=== PATIENT | female | born 1945 | race Caucasian/White ===

== ENCOUNTER 2017-01-09 08:52 | Outpatient (CLI) | payer OTHER | END 2017-01-09 20:24 | disposition home or self-care (01) | LOC: SMA 08:52 | PROVIDERS: ATTEND Internal Medicine | DX: Z12.31 Encounter for screening mammogram for malignant neoplasm of breast (principal) | CPT/HCPCS: G0202 ==

== ENCOUNTER 2018-10-02 09:13 | Outpatient (CLI) | payer OTHER | END 2018-10-02 21:28 | disposition home or self-care (01) | LOC: SMA 09:13 | PROVIDERS: ATTEND Obstetrics & Gynecology | DX: Z12.31 Encounter for screening mammogram for malignant neoplasm of breast (principal) | CPT/HCPCS: 77067 ==

== ENCOUNTER 2020-06-09 09:21 | Outpatient (CLI) | payer OTHER | END 2020-06-10 07:17 | disposition home or self-care (01) | LOC: SMA 09:21 | PROVIDERS: ATTEND Obstetrics & Gynecology | DX: Z12.31 Encounter for screening mammogram for malignant neoplasm of breast (principal) | CPT/HCPCS: 77067 ==

== ENCOUNTER 2021-07-05 09:50 | Outpatient (CLI) | payer OTHER | END 2021-07-05 21:26 | disposition home or self-care (01) | LOC: SMA 09:50 | PROVIDERS: ATTEND Nurse Practitioner Obstetrics & Gynecology | DX: Z12.31 Encounter for screening mammogram for malignant neoplasm of breast (principal); N64.89 Other specified disorders of breast | CPT/HCPCS: 77067 ==

== ENCOUNTER 2022-12-15 10:19 | Outpatient (CLI) | payer OTHER, BC | END 2022-12-15 20:47 | disposition home or self-care (01) | LOC: SMA 10:19 | PROVIDERS: ATTEND Specialist | DX: Z12.31 Encounter for screening mammogram for malignant neoplasm of breast (principal) | CPT/HCPCS: 77067 ==